=== PATIENT | male | born 2000 | race Caucasian/White ===

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

== ENCOUNTER 2024-08-19 13:29 | Emergency (ER) | payer OTHER, SELFPAY ==
[2024-08-19 13:41] VITALS: BP 147/87; PULSE 65; RESP 16; TEMP 36.4; O2SAT 100; BMI 28.7
[2024-08-19 15:13] LABS: Add Manual Diff / Slide Review NO; Basophils Absolute Auto 0 /uL (0-100); Basophils Percent Auto 0.4 % (0-2); Eosinophils Absolute Auto 100 /uL (0-450); Eosinophils Percent Auto 0.9 % (2-4); Hematocrit 45.2 % (41-53); Hemoglobin 15.6 g/dL (13.5-17.5); Lymphocytes Absolute Auto 2900 /uL (1100-4500); Lymphocytes Percent Auto 33.6 % (25-40); Mean Corpuscular HGB Conc 34.5 % (30-36); Mean Corpuscular Hemoglobin 31.4 PG (26-34); Mean Corpuscular Volume 91.1 fL (80-100); Monocytes Absolute Auto 800 /uL (0-900); Monocytes Percent Auto 8.8 % (3-14); Neutrophils Absolute Auto 4900 /uL (1500-7000); Neutrophils Percent Auto 56.3 % (50-75); Platelet Count 222 X10^3/uL (150-400); Red Blood Cell Count 4.97 X10^6/uL (4.5-5.9); Red Cell Distribution Width 13.3 % (11.6-14.8); White Blood Cell Count 8.8 X10^3/uL (4.5-11.0)
[2024-08-19 15:27] LABS: Alanine Aminotransferase 50 IU/L (<50); Albumin 5.1 g/dL (3.5-5.0); Albumin Globulin Ratio 1.4 (1.0-2.8); Alkaline Phosphatase 78 U/L (38-126); Aspartate Aminotransferase 42 IU/L (17-59); BUN Creatinine Ratio 16.5 (6-22); Bilirubin Total 1.1 mg/dL (0.2-1.3); Blood Urea Nitrogen 14 mg/dL (9-20); Calcium 9.4 mg/dL (8.4-10.2); Carbon Dioxide 26 mmol/L (22-32); Chloride 103 mmol/L (98-107); Estimated Glomerular Filt Rate > 60 mL/min (>60); Globulin 3.7 g/dL (1.7-4.1); Glucose 104 mg/dL (70-100); HEMOLYSIS 20 (0-50); Lipase 35 U/L (23-300); Potassium 3.8 mmol/L (3.4-5.1); Sodium 138 mmol/L (137-145); Total Protein 8.8 g/dL (6.3-8.2)
--- NOTE | 2024-08-19 16:58 | DI.CT.S_ITS ---
PROCEDURE: CT ABDOMEN PELVIS W CON INDICATIONS: L sided abdominal pain TECHNIQUE: After the administration of intravenous contrast, axial sections acquired from the lung bases to the pubic symphysis. Coronal and sagittal reformats were performed. For radiation dose reduction, the following was used: automated exposure control, adjustment of mA and/or kV according to patient size. COMPARISON: None. FINDINGS: Image quality: Diagnostic. Lower Chest: No significant findings. ABDOMEN: Liver: No solid mass. Gallbladder: No radiopaque gallstones or wall thickening. Biliary ducts: No biliary dilation. Pancreas: No ductal dilation. Spleen: Size is within normal limits. Adrenal Glands: No adrenal nodules. Kidneys and Ureters: No hydronephrosis. No solid mass. No complex renal cystic lesion which requires follow up. Tiny punctate nonobstructing left renal stones. Bilateral ureters are normal in course and caliber. Stomach and Bowel: Normal colonic caliber, without significant wall thickening. There are mild inflammatory changes involving the distal descending colon near the junction of the sigmoid colon. No free air or organized fluid collection seen. Normal appendix. No evidence for small bowel obstruction or associated inflammatory changes. Peritoneum: No abnormal intraperitoneal fluid. No free air. Ventral Wall: No significant ventral hernia. Abdominal Nodes: No retroperitoneal or mesenteric adenopathy by size criteria. Vessels: Aorta and inferior vena cava are normal in size. PELVIS: Pelvic Organs: Unremarkable. Bladder: No bladder wall thickening, accounting for underdistention. Pelvic Nodes: No enlarged lymph nodes. Miscellaneous: No inguinal hernias are seen. Bones: No aggressive osseous abnormality. IMPRESSION: Mild inflammatory changes involving the distal descending colon near the junction of the sigmoid colon likely related to early colitis either infectious or inflammatory in etiology. No evidence for perforation or abscess formation. Normal appendix. Tiny punctate nonobstructing left renal stones. Dictated by: Sage Vasquez M.D. on 08/19/2024 at 17:46 Approved by: Sage Vasquez M.D. on 08/19/2024 at 17:49
--- NOTE | 2024-08-19 17:01 | ED.ABDPAIN ---
HPI - Abdominal Pain <Julian Sanders PA-C - Last Filed: 08/19/24 18:31> General Chief Complaint: Abdominal Pain Stated Complaint: left sided pain abd Time Seen by Provider: 08/19/24 14:52 History of Present Illness HPI narrative: 24-year-old male presents to the ED with 2 days of left-sided abdominal pain. Patient endorses some nausea, no vomiting. No fever, chills, chest pain, shortness of breath, dysuria, diarrhea, lightheadedness, dizziness, syncope. Patient states that he has had some intermittent ongoing constipation over the last 2-3 months. Last bowel movement was yesterday morning, which was normal. Patient does lift some heavy objects at work and endorses sometimes not using back precautions. However, patient is not aware of any trauma that might have caused his symptoms. Related Data Home Medications Medication Instructions Recorded Confirmed calcium carbonate (Tums Extra 300 mg PO Q3-4H PRN 08/03/20 10/07/20 Strength Smoothies) famotidine 20 mg tablet (Pepcid) 20 mg PO DAILY 08/03/20 10/07/20 Previous Rx's Medication Instructions Recorded buspirone 15 mg tablet 15 mg PO BID #180 tabs 10/07/20 ondansetron 8 mg disintegrating 8 mg PO Q12H PRN nausea and 01/21/21 tablet vomiting #60 tabs Allergies Allergy/AdvReac Type Severity Reaction Status Date / Time Penicillins Allergy Verified 10/07/20 15:58 Review of Systems <Julian Sanders PA-C - Last Filed: 08/19/24 18:31> Constitutional Constitutional: Denies chills, Denies fatigue, Denies fever(s), Denies frequent falls, Denies lethargy and Denies weakness Eyes Eyes: Denies change in vision, Denies eye discharge, Denies irritation and Denies loss of vision ENT Ears, Nose, Mouth, and Throat: Denies change in voice, Denies dizziness, Denies neck pain, Denies sore throat and Denies throat swelling Cardiovascular Cardiovascular: Denies chest pain, Denies irregular heart rhythm, Denies lightheadedness, Denies palpitations, Denies dyspnea, Denies dyspnea on exertion and Denies orthopnea Respiratory Respiratory: Denies cough, Denies dyspnea, Denies dyspnea on exertion and Denies wheezing Gastrointestinal Gastrointestinal: Reports abdominal pain, Denies change in bowel habits, Denies diarrhea, Reports nausea and Denies vomiting Musculoskeletal Musculoskeletal: Denies neck pain and Denies numbness Integumentary/Breasts Skin/Breast: Denies pruritus, Denies erythema, Denies rash and Denies wounds Neurologic Neurologic: Denies behavioral changes, Denies confusion, Denies dizziness, Denies frequent falls, Denies loss of vision, Denies numbness and Denies weakness Psychiatric Psychiatric: Denies anxiety, Denies behavioral changes, Denies confusion, Denies depression, Denies homicidal ideation and Denies suicidal ideation Endocrine Endocrine: Denies fatigue, Denies flushing and Denies palpitations Hematologic/Lymphatic Hematologic/Lymphatic: Denies easy bruising Allergic/Immunologic Allergic/Immunologic: Denies urticaria, Denies throat swelling and Denies wheezing Patient History <Julian Sanders PA-C - Last Filed: 08/19/24 18:31> Medical History Elevated bilirubin Acne Allergies Nausea & vomiting Anxiety Social History Smoking Status: Never smoker second hand exposure: No alcohol intake: never substance use type: does not use Smoking Status: Never smoker Exam <Julian Sanders PA-C - Last Filed: 08/19/24 18:31> Narrative Exam Narrative: Const General:?cooperative, healthy appearing and comfortable [facility] Head:?normal to inspection Ears:?hearing grossly normal bilaterally Nose:?external nose normal Face and sinus:?normal facial exam and sinuses nontender Mouth:?oral mucosae normal Throat:?posterior oropharynx normal Eyes General:?appearance normal, both eyes and all related structures Neck Neck:?normal visual inspection and no lymphadenopathy noted Resp Effort & Inspection:?normal respiratory effort Auscultation:?clear to auscultation bilaterally Cardio Rate:?regular rate Rhythm:?regular rhythm GI Abdomen is soft, nondistended. Abdomen is tender to palpation in the left quadrants. Patient is guarding. No CVA tenderness. Neuro General:?patient alert, patient awake and patient oriented x3 Initial Vital Signs Initial Vital Signs: Vital Signs Temperature 97.6 F 08/19/24 13:41 Pulse Rate 65 08/19/24 13:41 Respiratory Rate 16 08/19/24 13:41 Blood Pressure 147/87 H 08/19/24 13:41 Pulse Oximetry 100 08/19/24 13:41 Oxygen Delivery Method Room Air 08/19/24 13:41 <Cj Powell MD - Last Filed: 08/19/24 22:51> Initial Vital Signs Initial Vital Signs: Vital Signs Temperature 97.6 F 08/19/24 13:41 Pulse Rate 65 08/19/24 13:41 Respiratory Rate 16 08/19/24 13:41 Blood Pressure 147/87 H 08/19/24 13:41 Pulse Oximetry 100 08/19/24 13:41 Oxygen Delivery Method Room Air 08/19/24 13:41 Course <Julian Sanders PA-C - Last Filed: 08/19/24 18:31> Orders Ordered: ED Orders 08/19/24 14:56 Complete Blood Count AUTO DIFF Stat Comprehensive Metabolic Panel Stat Lipase Stat 08/19/24 16:58 CT abdomen pelvis w con Stat Discontinued Medications Ketorolac Tromethamine (Ketorolac 30 Mg/Ml Vial) 15 mg IV NOW ONE Stop: 08/19/24 17:00 Last Admin: 08/19/24 17:32 Dose: 15 mg Documented By: CURT Ondansetron HCl (Ondansetron 4 Mg/2 Ml Inj) 4 mg IV NOW PRN PRN Reason: Nausea And Vomiting Ondansetron HCl (Ondansetron 4 Mg Odt) 4 mg PO NOW PRN PRN Reason: Nausea And Vomiting Vital Signs Vital signs: Vital Signs - 8 hr 08/19/24 18:30 Pulse Rate 63 Respiratory Rate 18 Blood Pressure 133/64 Pulse Oximetry 100 Oxygen Delivery Method Room Air <Cj Powell MD - Last Filed: 08/19/24 22:51> Orders Ordered: ED Orders 08/19/24 14:56 Complete Blood Count AUTO DIFF Stat Comprehensive Metabolic Panel Stat Lipase Stat 08/19/24 16:58 CT abdomen pelvis w con Stat Discontinued Medications Ketorolac Tromethamine (Ketorolac 30 Mg/Ml Vial) 15 mg IV NOW ONE Stop: 08/19/24 17:00 Last Admin: 08/19/24 17:32 Dose: 15 mg Documented By: CURT Ondansetron HCl (Ondansetron 4 Mg/2 Ml Inj) 4 mg IV NOW PRN PRN Reason: Nausea And Vomiting Ondansetron HCl (Ondansetron 4 Mg Odt) 4 mg PO NOW PRN PRN Reason: Nausea And Vomiting Vital Signs Vital signs: Vital Signs - 8 hr 08/19/24 18:30 Pulse Rate 63 Respiratory Rate 18 Blood Pressure 133/64 Pulse Oximetry 100 Oxygen Delivery Method Room Air MDM - Abdominal Pain <Franchescaa PRACHI Sanders - Last Filed: 08/19/24 18:31> Lab Data 08/19/24 14:56 08/19/24 14:56 Labs: Lab Results 08/19/24 Range/Units 14:56 WBC 8.8 (4.5-11.0) X10^3/uL RBC 4.97 (4.5-5.9) X10^6/uL Hgb 15.6 (13.5-17.5) g/dL Hct 45.2 (41-53) % MCV 91.1 (80-100) fL MCH 31.4 (26-34) PG MCHC 34.5 (30-36) % RDW 13.3 (11.6-14.8) % Plt Count 222 (150-400) X10^3/uL Neut % (Auto) 56.3 (50-75) % Lymph % (Auto) 33.6 (25-40) % [place] % (Auto) 8.8 (3-14) % Eos % (Auto) 0.9 L (2-4) % Baso % (Auto) 0.4 (0-2) % Neut # (Auto) 4900 (5001-2385) /uL Lymph # (Auto) 2900 (5250-5419) /uL [place] # (Auto) 800 (0-900) /uL Eos # (Auto) 100 (0-450) /uL Baso # (Auto) 0 (0-100) /uL Sodium 138 (137-145) mmol/L Potassium 3.8 (3.4-5.1) mmol/L Chloride 103 (98-107) mmol/L Carbon Dioxide 26 (22-32) mmol/L BUN 14 (9-20) mg/dL Creatinine 0.85 (0.66-1.25) mg/dL Estimated GFR > 60 (>60) mL/min BUN/Creatinine Ratio 16.5 (6-22) Glucose 104 H (70-100) mg/dL Calcium 9.4 (8.4-10.2) mg/dL Total Bilirubin 1.1 (0.2-1.3) mg/dL AST 42 (17-59) IU/L ALT 50 H (<50) IU/L Alkaline Phosphatase 78 (38-126) U/L Total Protein 8.8 H (6.3-8.2) g/dL Albumin 5.1 H (3.5-5.0) g/dL Globulin 3.7 (1.7-4.1) g/dL Albumin/Globulin Ratio 1.4 (1.0-2.8) Lipase 35 (23-300) U/L Point of care testing: Urine Dip Bedside Urine Glucose Negative Bedside Urine Bilirubin - Negative Bedside Urine Ketone - Negative Urine Specific [place] 1.020 Bedside Urine Occult Blood - Negative Bedside Urine pH 6.0 Bedside Urine Protein - Negative Bedside Urine Urobilinogen - Negative Bedside Urine Nitrite - Negative Bedside Urine Leukocytes - Negative Esterase MDM Narrative Medical decision making narrative: 24-year-old male presents to the ED with 2 days of left-sided abdominal pain. Concern for diverticulitis versus constipation versus kidney stones versus UTI versus other intra-abdominal pathology versus other. UA was obtained with no signs of UTI. Labs within normal limits. Will obtain CT abdomen pelvis to further characterize. Will give Toradol for pain. Will reassess. Symptoms improved with ketorolac. CT abdomen pelvis shows mild inflammatory changes involving the distal descending colon near the junction of the sigmoid colon, likely related to early colitis either infectious or inflammatory in etiology. No evidence for perforation or abscess formation. Normal appendix. Tiny punctate nonobstructing left renal stones. Discussed findings with patient. Patient does endorse that he had a recent bout of food poisoning that could have contributed to his symptoms. Recommend increased water and fiber intake. Recommend trialing MiraLax or Metamucil to prevent constipation. Recommend follow-up with PCP. ED return precautions discussed with patient. Patient verbalized understanding. Medical records reviewed: Yes <Cj Powell MD - Last Filed: 08/19/24 22:51> Lab Data Labs: Lab Results 08/19/24 Range/Units 14:56 WBC 8.8 (4.5-11.0) X10^3/uL RBC 4.97 (4.5-5.9) X10^6/uL Hgb 15.6 (13.5-17.5) g/dL Hct 45.2 (41-53) % MCV 91.1 (80-100) fL MCH 31.4 (26-34) PG MCHC 34.5 (30-36) % RDW 13.3 (11.6-14.8) % Plt Count 222 (150-400) X10^3/uL Neut % (Auto) 56.3 (50-75) % Lymph % (Auto) 33.6 (25-40) % [place] % (Auto) 8.8 (3-14) % Eos % (Auto) 0.9 L (2-4) % Baso % (Auto) 0.4 (0-2) % Neut # (Auto) 4900 (5678-8019) /uL Lymph # (Auto) 2900 (8254-7505) /uL [place] # (Auto) 800 (0-900) /uL Eos # (Auto) 100 (0-450) /uL Baso # (Auto) 0 (0-100) /uL Sodium 138 (137-145) mmol/L Potassium 3.8 (3.4-5.1) mmol/L Chloride 103 (98-107) mmol/L Carbon Dioxide 26 (22-32) mmol/L BUN 14 (9-20) mg/dL Creatinine 0.85 (0.66-1.25) mg/dL Estimated GFR > 60 (>60) mL/min BUN/Creatinine Ratio 16.5 (6-22) Glucose 104 H (70-100) mg/dL Calcium 9.4 (8.4-10.2) mg/dL Total Bilirubin 1.1 (0.2-1.3) mg/dL AST 42 (17-59) IU/L ALT 50 H (<50) IU/L Alkaline Phosphatase 78 (38-126) U/L Total Protein 8.8 H (6.3-8.2) g/dL Albumin 5.1 H (3.5-5.0) g/dL Globulin 3.7 (1.7-4.1) g/dL Albumin/Globulin Ratio 1.4 (1.0-2.8) Lipase 35 (23-300) U/L Point of care testing: Urine Dip Bedside Urine Glucose Negative Bedside Urine Bilirubin - Negative Bedside Urine Ketone - Negative Urine Specific [place] 1.020 Bedside Urine Occult Blood - Negative Bedside Urine pH 6.0 Bedside Urine Protein - Negative Bedside Urine Urobilinogen - Negative Bedside Urine Nitrite - Negative Bedside Urine Leukocytes - Negative Esterase Discharge Plan Departure Patient Disposition: Home Clinical Impression: Abdominal pain Qualifiers: Abdominal location: left lower quadrant Qualified Code(s): R10.32 - Left lower quadrant pain Instructions: DI for Abdominal Pain-Adult Activity Restrictions/Additional Instructions: You were evaluated in the ED today for abdominal pain. Your labs and urine were normal. Your CT scan showed some inflammation/colitis which most often occurs due to gastroenteritis/food poisoning. It is recommended that you consume plenty of water and increase fiber intake. You may also take laxative such as MiraLax and Metamucil. Please follow-up with your PCP as soon as possible. Return to the ED if you have worsening symptoms. Prescriptions: No Action ondansetron 8 mg tablet,disintegrating 8 mg PO Q12H PRN (Reason: nausea and vomiting) Qty: 60 0RF buspirone 15 mg tablet 15 mg PO BID Qty: 180 2RF Rx Instructions: point out the dose of this pill to him. He only needs one tablet BID famotidine [Pepcid] 20 mg tablet 20 mg PO DAILY calcium carbonate [Tums Extra Strength Smoothies] 300 mg (750 mg) tablet,chewable 300 mg PO Q3-4H PRN Stand Alone Forms: Patient Portal/API/Survey, Work Release Note ED Sign-out <Cj Powell MD - Last Filed: 08/19/24 22:51> Cosign ED Attending Vivianature Attestation: I was immediately available in the department for consultation. This documentation has been reviewed and I agree with assessment and plan. Supervised by Cj Powell MD
[2024-08-19] MEDS: KETOROLAC 30 MG/ML VIAL 15 MG IV (17:32)
[2024-08-19 18:30] VITALS: BP 133/64; PULSE 63; RESP 18; O2SAT 100
== END 2024-08-19 18:36 | disposition home or self-care (01) ==
PROVIDERS: Emergency Provider Student in an Organized Health Care Education/Training Program; Family Provider Pediatrics
DX: R10.32 Left lower quadrant pain (principal)
CPT/HCPCS: 74177; 80053; 81003; 83690; 85025; 96374; 99283; 99285; J1885; Q9967